=== PATIENT | female | born 1990 | race American Indian/Alaskan Native ===

== ENCOUNTER 2017-12-19 13:10 | Emergency (ER) | payer OTHER ==
[2017-12-19 13:21] VITALS: BP 137/84
--- NOTE | 2017-12-19 13:25 | EDM.PDOC ---
ED HPI GENERAL MEDICAL PROBLEM - General Chief Complaint: Lower Extremity Injury/Pain Stated Complaint: LEFT PINKY TOE, HIT DOOR 1 WK PRIOR Time Seen by Provider: 12/19/17 13:15 Source of Information: Reports: Patient History Limitations: Reports: No Limitations - History of Present Illness INITIAL COMMENTS - FREE TEXT/NARRATIVE: This 27 yo female patient reports to the ED with left little toe pain. The patient reports she bumped it on a door about 1 week ago and bumped it again yesterday. The patient has noticed increased pain and swelling in the toe over the past 24 hours. The patient reports that she is not sure if she could be . Onset: Unknown/Unsure Duration: Week(s): ("about 1 week ago") Location: Reports: Lower Extremity, Left Quality: Reports: Ache, Dull Severity: Mild Improves with: Reports: None Worsens with: Reports: None Context: Reports: Other Associated Symptoms: Reports: No Other Symptoms Left 5-Little toe Pain Score (Numeric/FACES): 4 - Related Data Allergies Allergy/AdvReac Type Severity Reaction Status Date / Time No Known Allergies Allergy Verified 12/19/17 13:18 Home Meds: Home Meds Acetaminophen [Tylenol] 650 mg PO Q6H PRN #30 tablet 08/09/14 [Rx] Ibuprofen 800 mg PO Q8H PRN #30 tablet 08/09/14 [Rx] Social & Family History - Living Situation & Occupation Living situation: Reports: with Significant Other Occupation: Unemployed Review of Systems - Review of Systems Review Of Systems: ROS reveals no pertinent complaints other than HPI. ED EXAM, GENERAL - Physical Exam Exam: See Below Exam Limited By: No Limitations General Appearance: Alert, WD/WN, Mild Distress Eye Exam: Bilateral Eye: EOMI, Normal Inspection, PERRL Ears: Normal External Exam, Normal Canal, Hearing Grossly Normal, Normal TMs Nose: Normal Inspection, Normal Mucosa, No Blood Throat/Mouth: Normal Inspection, Normal Lips, Normal Teeth, Normal Gums, Normal Oropharynx, Normal Voice, No Airway Compromise Head: Atraumatic, Normocephalic Neck: Normal Inspection, Supple, Non-Tender, Full Range of Motion Respiratory/Chest: No Respiratory Distress, Lungs Clear, Normal Breath Sounds, No Accessory Muscle Use, Chest Non-Tender Cardiovascular: Normal Peripheral Pulses, Regular Rate, Rhythm, No Edema, No Gallop, No JVD, No Murmur, No Rub GI/Abdominal: Normal Bowel Sounds, Soft, Non-Tender, No Organomegaly, No Distention, No Abnormal Bruit, No Mass (Female) Exam: Deferred Rectal (Female) Exam: Deferred Back Exam: Normal Inspection, Full Range of Motion, NT Extremities: Other (left 5th toe pain and swelling with contusion) Neurological: Alert, Oriented, CN II-XII Intact, Normal Cognition, Normal Gait, Normal Reflexes, No Motor/Sensory Deficits Psychiatric: Normal Affect, Normal Mood Lymphatic: No Adenopathy Course - Vital Signs Last Recorded V/S: Last Vital Signs Temp 36.3 C 12/19/17 13:19 Pulse 113 H 12/19/17 13:19 Resp 16 12/19/17 13:19 BP 137/84 12/19/17 13:19 Pulse Ox 100 12/19/17 13:19 - Orders/Labs/Meds Orders: Active Orders 24 hr Category Date Time Status Toes Fifth Digit Lt T4 [CR] Urgent Exams 12/19/17 13:50 Ordered Labs: Laboratory Tests 12/19/17 12/19/17 Range/Units 13:23 13:23 Urine Color Yellow (YELLOW) Urine Appearance Slightly cloudy (CLEAR) Urine pH 5.5 (5.0-9.0) Ur Specific [place] 1.020 (1.005-1.030) Urine Protein Trace H (NEGATIVE) Urine Glucose (UA) Negative (NEGATIVE) Urine Ketones Negative (NEGATIVE) Urine Occult Blood Trace-lysed H (NEGATIVE) Urine Nitrite Negative (NEGATIVE) Urine Bilirubin Negative (NEGATIVE) Urine Urobilinogen 0.2 (0.2-1.0) mg/dL Ur Leukocyte Esterase Small H (NEGATIVE) Urine RBC 0-5 /HPF Urine WBC 5-10 H (0-5/HPF) /HPF Ur Epithelial Cells Moderate H /HPF Amorphous Sediment Rare (0/HPF) /HPF Urine Bacteria Few (0-FEW/HPF) /HPF Urine Mucus Rare /LPF Urine HCG, Qual Negative - Re-Assessments/Exams Free Text/Narrative Re-Assessment/Exam: 12/19/17 14:02 The patient was advised of her lab results. At that time, the patient reported that she was going to drop her daughter off just across the street and would be right back. The patient was advised that an x-ray was ordered for her toe. 12/19/17 14:50 The patient has not returned to the ED from dropping off her daughter. Departure - Departure Time of Disposition: 14:50 Disposition: Against Medical Advice 07 Condition: Good Clinical Impression: Toe injury Qualifiers: Encounter type: initial encounter Laterality: left Qualified Code(s): S99.922A - Unspecified injury of left foot, initial encounter - Discharge Information Forms: ED Department Discharge Care Plan Goals: The patient left prior to getting the x-rays as ordered. The patient did not return after leaving the ED to drop off her daughter. The patient's visit was kept active for 1 hour after the patient had left. - My Orders Last 24 Hours: My Active Orders 12/19/17 13:50 Toes Fifth Digit Lt T4 [CR] Urgent - Assessment/Plan Last 24 Hours: My Active Orders 12/19/17 13:50 Toes Fifth Digit Lt T4 [CR] Urgent
== END 2017-12-19 14:34 | disposition left against medical advice (07) ==
LOC: DL.ED 13:10
DX: S90.122A Contusion of left lesser toe(s) without damage to nail, initial encounter (principal); W22.8XXA Striking against or struck by other objects, initial encounter
CPT/HCPCS: 81001; 81025; 99283

== ENCOUNTER 2020-05-06 17:11 | Observation (INO) | payer MEDICAID ==
[2020-05-06] MEDS ORDERED: hydrOXYzine HCl 25 MG Tab PO PRN (20:26)
[2020-05-06] MEDS: metroNIDAZOLE 250 MG Tab PO SCH (20:49)
[2020-05-07] MEDS: metroNIDAZOLE 250 MG Tab PO SCH (08:08)
--- NOTE | 2020-05-07 08:27 | PCM.LDHP ---
L&D History of Present Illness - General Date of Service: 05/07/20 Admit Problem/Dx: Patient Status Order with Admit Dx/Problem 05/06/20 20:27 Admission Status [Patient Status] [ADT] Routine Admission Diagnosis/Problem Admission Diagnosis/Problem No care in current - History of Present Illness Introduction:: Patient is a 29 yo who presented to L&D stating "her due date was yesterday." She does not know her LMP. She was in retirement sometime in September and that was when she found out she was . She states she was seen at [facility] and told her due date was 05/05/20. She has not had any other care this . She states that the baby has been active. She's had spotting after intercourse but no active bleeding. She does have vaginal discharge and odor. Denies dysuria, hematuria, urgency. Denies recent fever, chills or URI symptoms. She denies vision changes, abdominal pain, or edema. She has been having occasional [place] contractions but nothing consistent or painful. She's had no leakage of fluid. She does not know when she got out of retirement but states she's been out for several months. She has been using IV drugs including methamphetamines. States her last use was 3 days ago. She does smoke 1/2 pack cigarettes per day. Denies alcohol use or use of prescription drugs. She has a history of 2 prior vaginal deliveries in 2012 and 2015 and a missed for which she underwent a D&C. She developed preeclampsia with her last . No other surgeries. Family history positive for diabetes in mother, alcohol abuse in father, diabetes in maternal GM and GF. - Related Data Allergies/Adverse Reactions: Allergies Allergy/AdvReac Type Severity Reaction Status Date / Time No Known Allergies Allergy Verified 12/19/17 13:18 Home Medications: Home Meds Acetaminophen [Tylenol] 650 mg PO Q6H PRN #30 tablet 08/09/14 [Rx] Ibuprofen 800 mg PO Q8H PRN #30 tablet 08/09/14 [Rx] Past Medical History - Past Health History Medical/Surgical History: Denies Medical/Surgical History Other OB/BYN History: . Two prior vaginal deliveries in 2012 and 2015, one missed and she underwent D&C. Had preeclampsia with her last delivery. - Infectious Disease History Infectious Disease History: Reports: Other (See Below) Other Infectious Disease History: unknown - Past Surgical History Female Surgical History: Reports: D&C Social & Family History - Family History Endocrine/Metabolic: Reports: Diabetes, type II - Tobacco Use Smoking Status *Q: Current Every Day Smoker Years of Tobacco use: 15 Packs/Tins Daily: 2 Second Hand Smoke Exposure: Yes - Caffeine Use Caffeine Use: Reports: Coffee, Soda - Alcohol Use Alcohol Use History: No - Recreational Drug Use Recreational Drug Use: Yes Drug Use in Last 12 Months: Yes Recreational Drug Type: Reports: Marijuana/Hashish, Methamphetamine Recreational Drug Last Use: last couple days - Living Situation & Occupation Living situation: Reports: with Significant Other Occupation: Unemployed H&P Review of Systems - Review of Systems: Review Of Systems: See Below General: Denies: Fever, Chills, Weakness HEENT: Reports: Headaches. Denies: Sinus Congestion, Sore Throat, Visual Changes Pulmonary: Denies: Shortness of Breath Cardiovascular: Denies: Chest Pain, Edema, Lightheadedness Gastrointestinal: Denies: Abdominal Pain, Diarrhea, Nausea, Vomiting Genitourinary: Denies: Dysuria, Frequency, Burning, Urgency, Flank Pain Neurological: Reports: Headache. Denies: Dizziness L&D Exam - Exam Exam: See Below - Vital Signs Vital Signs: Last Vital Signs Temp 98.9 F 05/07/20 03:44 Pulse 85 05/07/20 03:44 Resp 18 05/07/20 03:44 BP 116/67 05/07/20 03:44 Pulse Ox 99 05/07/20 03:44 Weight: 185 lb - OB Specific Fundal Height In cm: 34 Contraction Frequency (min): none Contraction Intensity: Irritability Movement: Active Heart Tones: Present Heart Tones per Min: 140 Heart Rate (FHR) Variability: Moderate (6-25 bmp) - Exam General: Alert, Oriented HEENT: Conjunctiva Clear, Mucosa Moist & [place], Posterior Pharynx Clear Neck: Supple, Trachea Midline Lungs: Clear to Auscultation, Normal Respiratory Effort Cardiovascular: Regular Rate, Regular Rhythm, Normal S1, Normal S2 GI/Abdominal Exam: Soft, Non-Tender Extremities: No Pedal Edema Skin: Warm, Dry, Intact Neurological: Hyperreflexia - Patient Data Lab Results Last 24 hrs: Laboratory Results - last 24 hr 05/06/20 05/06/20 05/06/20 Range/Units 17:25 17:25 17:25 WBC (5.0-10.0) 10^3/uL RBC (4.2-5.4) 10^6/uL Hgb (12.0-16.0) g/dL Hct (37.0-47.0) % MCV (80-100) fL MCH (27.0-34.0) pg MCHC (33.0-35.0) g/dL Plt Count (150-450) 10^3/uL BUN (7-18) mg/dL Creatinine (0.55-1.02) mg/dL Est Cr Clr Drug Dosing mL/min Estimated GFR (MDRD) Uric Acid (2.6-6.0) mg/dL AST (15-37) U/L ALT (14-59) U/L Lactate Dehydrogenase (81-234) U/L Urine Color Yellow (YELLOW) Urine Appearance Slightly cloudy (CLEAR) Urine pH 6.5 (5.0-9.0) Ur Specific [place] 1.025 (1.005-1.030) Urine Protein Trace H (NEGATIVE) Urine Glucose (UA) Negative (NEGATIVE) Urine Ketones Negative (NEGATIVE) Urine Occult Blood Negative (NEGATIVE) Urine Nitrite Negative (NEGATIVE) Urine Bilirubin Negative (NEGATIVE) Urine Urobilinogen 0.2 (0.2-1.0) mg/dL Ur Leukocyte Esterase Moderate H (NEGATIVE) Urine RBC 0-5 /HPF Urine WBC 5-10 H (0-5/HPF) /HPF Ur Epithelial Cells Few (NOT SEEN) /HPF Urine Bacteria Few (0-FEW/HPF) /HPF Urine Mucus Few H (NOT SEEN) /LPF Urine Trichomonas Present H (NOT SEEN) /HPF Ur Random Creatinine 56.93 (No establ ref range) mg/dL U Random Total Protein 30.4 H (0.0-11.9) mg/dL Protein/Creatinin Ratio 534.0 H (<150.0) mg/g Urine Opiates Screen Negative (NEGATIVE) Ur Oxycodone Screen Negative (NEGATIVE) Urine Methadone Screen Negative (NEGATIVE) Ur Barbiturates Screen Negative (NEGATIVE) U Tricyclic Antidepress Negative (NEGATIVE) Ur Phencyclidine Scrn Negative (NEGATIVE) Ur Amphetamine Screen Negative (NEGATIVE) U Methamphetamines Scrn Positive H (NEGATIVE) Urine MDMA Screen Negative (NEGATIVE) U Benzodiazepines Scrn Negative (NEGATIVE) Urine Cocaine Screen Negative (NEGATIVE) U Marijuana (THC) Screen Negative (NEGATIVE) HIV-1 Antibody (NONREACTIVE) HIV-2 Antibody (NONREACTIVE) HIV P24 Antigen (NONREACTIVE) Blood Type Gel Antibody Screen 05/06/20 05/06/20 05/06/20 Range/Units 18:23 18:23 18:23 WBC 10.1 H (5.0-10.0) 10^3/uL RBC 4.29 (4.2-5.4) 10^6/uL Hgb 12.3 D (12.0-16.0) g/dL Hct 35.9 L (37.0-47.0) % MCV 83.7 (80-100) fL MCH 28.7 (27.0-34.0) pg MCHC 34.3 (33.0-35.0) g/dL Plt Count 352 D (150-450) 10^3/uL BUN 13 (7-18) mg/dL Creatinine 0.47 L (0.55-1.02) mg/dL Est Cr Clr Drug Dosing 160.35 mL/min Estimated GFR (MDRD) > 60 Uric Acid 4.8 (2.6-6.0) mg/dL AST 24 (15-37) U/L ALT 31 (14-59) U/L Lactate Dehydrogenase 165 (81-234) U/L Urine Color (YELLOW) Urine Appearance (CLEAR) Urine pH (5.0-9.0) Ur Specific [place] (1.005-1.030) Urine Protein (NEGATIVE) Urine Glucose (UA) (NEGATIVE) Urine Ketones (NEGATIVE) Urine Occult Blood (NEGATIVE) Urine Nitrite (NEGATIVE) Urine Bilirubin (NEGATIVE) Urine Urobilinogen (0.2-1.0) mg/dL Ur Leukocyte Esterase (NEGATIVE) Urine RBC /HPF Urine WBC (0-5/HPF) /HPF Ur Epithelial Cells (NOT SEEN) /HPF Urine Bacteria (0-FEW/HPF) /HPF Urine Mucus (NOT SEEN) /LPF Urine Trichomonas (NOT SEEN) /HPF Ur Random Creatinine (No establ ref range) mg/dL U Random Total Protein (0.0-11.9) mg/dL Protein/Creatinin Ratio (<150.0) mg/g Urine Opiates Screen (NEGATIVE) Ur Oxycodone Screen (NEGATIVE) Urine Methadone Screen (NEGATIVE) Ur Barbiturates Screen (NEGATIVE) U Tricyclic Antidepress (NEGATIVE) Ur Phencyclidine Scrn (NEGATIVE) Ur Amphetamine Screen (NEGATIVE) U Methamphetamines Scrn (NEGATIVE) Urine MDMA Screen (NEGATIVE) U Benzodiazepines Scrn (NEGATIVE) Urine Cocaine Screen (NEGATIVE) U Marijuana (THC) Screen (NEGATIVE) HIV-1 Antibody Non-reactive (NONREACTIVE) HIV-2 Antibody Non-reactive (NONREACTIVE) HIV P24 Antigen Non-reactive (NONREACTIVE) Blood Type O POSITIVE Gel Antibody Screen Negative Result Diagrams: 05/06/20 18:23 05/06/20 18:23 Daniel Results Last 24 hrs: Microbiology 05/06/20 17:50 Wet Prep - Final Vagina - Problem List (1) No care in current in third trimester SNOMED Code(s): 111452517, 967671421 ICD Code: O09.33 - SUPRVSN OF PREG W INSUFFICIENT ANTENAT CARE, THIRD TRIMESTER Status: Acute Current Visit: Yes (2) Drug use affecting in third trimester SNOMED Code(s): 60348864, 73345437, 481158794 ICD Code: O99.323 - DRUG USE COMPLICATING , THIRD TRIMESTER Status: Acute Current Visit: Yes (3) Methamphetamine abuse SNOMED Code(s): 248674016 ICD Code: F15.10 - OTHER STIMULANT ABUSE, UNCOMPLICATED Status: Acute Current Visit: Yes (4) Proteinuria affecting in third trimester SNOMED Code(s): 92825167, 02076245, 497138993 ICD Code: O12.13 - GESTATIONAL PROTEINURIA, THIRD TRIMESTER Status: Acute Current Visit: Yes (5) Elevated blood pressure affecting in third trimester, antepartum SNOMED Code(s): 31777347, 21261615, 624911913 ICD Code: O16.3 - UNSPECIFIED MATERNAL HYPERTENSION, THIRD TRIMESTER Status : Acute Current Visit: Yes (6) Preeclampsia SNOMED Code(s): 678514895 ICD Code: O14.90 - UNSPECIFIED PRE-ECLAMPSIA, UNSPECIFIED TRIMESTER Status: Acute Current Visit: Yes Problem List Initiated/Reviewed/Updated: Yes Orders Last 24hrs: Active Orders 24 hr Category Date Time Status Admission Status [Patient Status] [ADT] Routine ADT 05/06/20 20:27 Active Heart Rate [RC] QSHIFT Care 05/06/20 17:52 Active Monitoring [RC] BID Care 05/06/20 20:30 Active OB Check [OM.PC] Click To Edit Care 05/06/20 17:52 Ordered POC Labs [RC] ASDIRECTED Care 05/06/20 20:29 Active Vital Signs [RC] Q4HR Care 05/06/20 20:29 Active Regular Diet [DIET] Diet 05/06/20 Breakfast Active OB Ltd 1 or More Fetus [US] Routine Exams 05/07/20 08:00 Ordered CHLAMYDIA AND GONORRHEA BY TMA Routine Lab 05/06/20 17:25 Received CULTURE GROUP B STREP [RM] Routine Lab 05/06/20 17:50 Received CULTURE URINE [RM] Routine Lab 05/06/20 17:25 Received HBSAG SCREEN [REF] Urgent Lab 05/06/20 18:23 Received HEP C VIRUS AB [REF] Urgent Lab 05/06/20 18:23 Received RPR (SYPHILIS SERO) W/ RFLX [REF] Routine Lab 05/06/20 18:23 Received RUBELLA ANTIBODY, IGG [REF] Routine Lab 05/06/20 18:23 Received TRAMADOL, SCREEN ONLY, UR Routine Lab 05/06/20 17:25 Received hydrOXYzine HCL [Atarax] Med 05/06/20 20:26 Active 50 mg PO Q8HR PRN metroNIDAZOLE Med 05/06/20 21:00 Active 500 mg PO Q12HR Resuscitation Status Routine Resus Stat 05/06/20 20:29 Ordered Medication Orders Hydroxyzine HCl (Atarax) 50 mg PO Q8HR PRN PRN Reason: Sleep Last Admin: 05/06/20 20:49 Dose: 50 mg Documented by: CARLOS A Metronidazole (Metronidazole) 500 mg PO Q12HR EM Last Admin: 05/06/20 20:49 Dose: 500 mg Documented by: CARLOS A Assessment/Plan Comment:: Patient has proteinuria (UPCR 0.5) and elevated blood pressures. Unknown gestation on admission. No care. Patient observed overnight due to potential development of preeclampsia. UDS positive for meth. labs ordered. PIH labs ordered and otherwise normal except for proteinuria. Wet prep positive for trichomonas, flagyl started. US not available overnight and was obtained in the morning. US shows 34w1d gestation, single, anterior placenta. Blood pressures increased this morning into severe range, 160s/80s. Patient also complaining of a headache. Spoke with Dr. Echevarria and decision was made to transfer to [facility] for developing preeclampsia with severe features. Dr. Shelby contacted and did accept transfer. First dose of beta given at 11 AM. Patient has very high risk social situation.
--- NOTE | 2020-05-07 10:35 | US ---
PROCEDURE INFORMATION: Exam: US , Limited Exam date and time: 05/07/2020 8:10 AM Age: 29 years old Clinical indication: Screening exam; Routine US, uterus; Additional info: No known lmp, dating TECHNIQUE: Imaging protocol: Real-time ultrasound of the maternal uterus with image documentation. Exam focused on the clinical indication. COMPARISON: No relevant prior studies available. FINDINGS: Gestation: Single intrauterine gestation with cephalic presentation and longitudinal lie. Placenta is anterior. heart rate: heart rate is 176 bpm. BIOMETRY: Estimated weight: 2263 g or 5 lb 0 oz. Biparietal diameter: 8.57 cm, 34 weeks four days. Head circumference: 31.85 cm, 35 weeks six days. Abdominal circumference: 30.56 cm, 34 weeks four days. Femur length: 5.99 cm, 31 weeks four days. IMPRESSION: Single and viable intrauterine gestation having and estimated age using ultrasound of 34 weeks one day and estimated date of delivery June 17, 2020.
[2020-05-07] MEDS ORDERED: Betamethasone Acetate/Betamethasone Sod Phosphate 30 MG/5 ML MDV IM ONE (11:02)
[2020-05-07] MEDS ORDERED: Acetaminophen 500 MG Tab PO PRN (11:16)
[2020-05-07] MEDS ORDERED: Acetaminophen 325 MG Tab ONE (11:18)
[2020-05-07] MEDS ORDERED: Sodium Chloride 0.9% 10 ML Syringe FLUSH PRN (12:10)
[2020-05-07 12:42] VITALS: BP 165/91; PULSE 80
[2020-05-10 15:42] LABS: C.TRACHOMATIS BY TMA Positive (Negative); N.GONORRHOEAE BY TMA Positive (Negative)
== END 2020-05-07 13:00 ==
LOC: DL.OBCHECK 17:11 → DL.OB 20:27 → UNDOADMOB 21:40 → DL.OB 21:40
PROVIDERS: ADMIT Family Medicine; ATTEND Family Medicine
DX: O09.33 Supervision of pregnancy with insufficient antenatal care, third trimester (principal); O99.323 Drug use complicating pregnancy, third trimester; F15.10 Other stimulant abuse, uncomplicated; O12.13 Gestational proteinuria, third trimester; O16.3 Unspecified maternal hypertension, third trimester; O14.90 Unspecified pre-eclampsia, unspecified trimester; Z79.899 Other long term (current) drug therapy; Z20.828 Contact with and (suspected) exposure to other viral communicable diseases
CPT/HCPCS: 59025; 76815; 80305; 80307; 81001; 82565; 82570; 83615; 84156; 84450; 84460; 84520; 84550; 85027; 86592; 86762; 86803; 86850; 86900; 86901; 87081; 87086; 87210; 87340; 87389; 87491; 87591; 87635; 96372; A9270; G0378; J0702; U0002